=== PATIENT | female | born 1990 | race American Indian/Alaskan Native ===

== ENCOUNTER 2016-10-19 12:23 | Emergency (ER) | payer MEDICAID ==
[2016-10-19 13:36] LABS: Basophils % (Auto) 0.5 % (0.0-1.8); Eosinophils % (Auto) 1.7 % (0.0-4.3); Hematocrit 36.9 % (30.3-42.9); Hemoglobin 11.5 gm/dl (10.1-14.3); Mean Corpuscular HGB Conc 31 % (30-34); Mean Corpuscular Volume 76 fl (79-97); Platelet Count 322 K/mm3 (140-440); Red Blood Count 4.85 M/mm3 (3.65-5.03); Red Cell Distribution Width 18.9 % (13.2-15.2)
[2016-10-19 13:49] LABS: Mean Corpuscular Hemoglobin 24 pg (28-32)
[2016-10-19 13:55] LABS: Alanine Aminotransferase 9 units/L (7-56); Albumin/Globulin Ratio 1.3 %; Alkaline Phosphatase 63 units/L (35-129); Anion Gap 14 mmol/L; BUN/Creatinine Ratio 11.66; Bilirubin,Total 0.3 mg/dL (0.1-1.2); Blood Urea Nitrogen 7 mg/dL (7-17); Carbon Dioxide 28 mmol/L (22-30); Chloride 102.2 mmol/L (98-107); Glucose 70 mg/dL (65-100); Lipase 22 units/L (13-60); Sodium 140 mmol/L (137-145); Total Protein 7.1 g/dL (6.3-8.2)
[2016-10-19 14:28] LABS: Bilirubin,Urine NEG (Negative); Blood,Urine NEG (Negative); Ketones,Urine NEG (Negative); Leukocyte Esterase,Urine SM (Negative); Mucus,Urine 2+ /HPF; Nitrite,Urine NEG (Negative); Protein,Urine <15 mg/dL mg/dL (Negative); Urobilinogen,Urine < 2.0 mg/dL (<2.0)
[2016-10-19] MEDS ORDERED: ZOFRAN ODT ONE (20:06)
[2016-10-19] MEDS ORDERED: ZOFRAN ODT PO ONE (20:10)
[2016-10-19] MEDS ORDERED: BENTYL IM ONE (21:52)
[2016-10-19] MEDS ORDERED: ZOFRAN IV ONE (21:52)
[2016-10-19] MEDS ORDERED: PEPCID PO ONE (21:53)
[2016-10-19] MEDS ORDERED: LIDOCAINE VISCOUS 2% PO ONE (21:53)
[2016-10-19] MEDS ORDERED: ALUM-MAG HYDROX-SIMETH 200-200-20MG/5ML PO ONE (21:53)
--- NOTE | 2016-10-19 21:57 | Emergency Department Report ---
ED Abdominal Pain HPI - General Chief Complaint: Abdominal Pain Stated Complaint: ABD PAIN Time Seen by Provider: 10/19/16 21:47 Source: patient Mode of arrival: Ambulatory Limitations: No Limitations - History of Present Illness Initial Comments: 23-year-old female with no past medical history presented today because of epigastric abdominal pain. Patient states started this morning and was associated with a couple bouts of nonbloody nonbilious emesis. She has not had any diarrhea, reports that she is able to stool but not enough comes out. He has no fevers or chills. No history of trauma surgeries. No vaginal bleeding or discharge. Severity scale (0 -10): 8 - Related Data Previous Rx's Medication Instructions Recorded Last Taken Type Dicyclomine [Bentyl] 20 mg PO BID PRN #14 tablet 10/20/16 Unknown Rx Famotidine [Pepcid] 20 mg PO BID #14 tablet 10/20/16 Unknown Rx Polyethylene Glycol 3350 [Miralax 17 gm PO QDAY #7 packet 10/20/16 Unknown Rx 3350] Allergies Allergy/AdvReac Type Severity Reaction Status Date / Time No Known Allergies Allergy Verified 10/19/16 13:12 ED Review of Systems ROS: Stated complaint: ABD PAIN Other details as noted in HPI Comment: All other systems reviewed and negative Constitutional: denies: chills, fever Respiratory: denies: cough Cardiovascular: denies: chest pain Gastrointestinal: abdominal pain. denies: nausea, vomiting Genitourinary: denies: urgency, dysuria Skin: denies: rash Neurological: denies: headache Psychiatric: denies: anxiety ED Past Medical Hx - Past Medical History Previous Medical History?: No - Surgical History Additional Surgical History: elective AB - Social History Smoking Status: Current Every Day Smoker Substance Use Type: Alcohol, Marijuana - Medications Home Medications: Home Medications Medication Instructions Recorded Confirmed Last Taken Type Dicyclomine [Bentyl] 20 mg PO BID PRN #14 tablet 10/20/16 Unknown Rx Famotidine [Pepcid] 20 mg PO BID #14 tablet 10/20/16 Unknown Rx Polyethylene Glycol 3350 [Miralax 17 gm PO QDAY #7 packet 10/20/16 Unknown Rx 3350] ED Physical Exam - General Limitations: No Limitations General appearance: alert, in no apparent distress - Head Head exam: Present: atraumatic - Eye Eye exam: Present: normal appearance - Neck Neck exam: Present: normal inspection - Respiratory Respiratory exam: Absent: respiratory distress - Cardiovascular Cardiovascular Exam: Present: regular rate, normal rhythm - GI/Abdominal GI/Abdominal exam: Present: soft, other (mild epigastric tenderness, no guarding /rebound, murphys negative). Absent: distended, guarding, rebound - Neurological Exam Neurological exam: Present: alert, oriented X3 - Psychiatric Psychiatric exam: Present: normal affect - Skin Skin exam: Present: intact ED Course Vital Signs 10/19/16 10/19/16 10/19/16 13:13 20:10 21:28 Temperature 98.1 F 99.1 F Pulse Rate 78 73 78 Respiratory 17 18 16 Rate Blood Pressure 122/77 128/73 Blood Pressure 120/74 [Left] O2 Sat by Pulse 100 100 99 Oximetry 10/19/16 22:44 Temperature Pulse Rate 74 Respiratory 16 Rate Blood Pressure Blood Pressure 126/72 [Left] O2 Sat by Pulse 99 Oximetry - Reevaluation(s) Reevaluation #1: 10/20/16 00:16 Symptoms significantly improved ED Medical Decision Making - Lab Data Result diagrams: 10/19/16 13:19 10/19/16 13:19 - Medical Decision Making labs unremarkable other than mild leukocytosis gi cocktail and bentyl ua negative Critical care attestation.: If time is entered above; I have spent that time in minutes in the direct care of this critically ill patient, excluding procedure time. ED Disposition Clinical Impression: Abdominal pain Qualifiers: Abdominal location: upper abdomen, unspecified Qualified Code(s): R10.10 - Upper abdominal pain, unspecified Disposition: DISCHARGED TO HOME OR SELFCARE Is pt being admited?: No Condition: Stable Instructions: Abdominal Pain (ED), Gastritis (ED), Constipation (ED) Additional Instructions: Please follow up with your primary care physician in the next 3-5 days. Return to the Er if your symptoms worsen or you develop new symptoms. Prescriptions: Dicyclomine [Bentyl] 20 mg PO BID PRN #14 tablet PRN Reason: Pain Famotidine [Pepcid] 20 mg PO BID #14 tablet Polyethylene Glycol 3350 [Miralax 3350] 17 gm PO QDAY #7 packet Referrals: PRIMARY CARE, [Primary Care Provider] - 3-5 Days Time of Disposition: 00:16
[2016-10-20 00:09] VITALS: BP 122/76
== END 2016-10-20 00:24 | disposition home or self-care (01) ==
LOC: ED 12:23
DX: R10.13 Epigastric pain (principal); F17.200 Nicotine dependence, unspecified, uncomplicated; F12.10 Cannabis abuse, uncomplicated; Z98.890 Other specified postprocedural states
CPT/HCPCS: 36415; 80053; 81001; 83690; 84703; 85025; 96372; 99283; J0500; Q0162

== ENCOUNTER 2017-03-04 23:47 | Emergency (ER) | payer MEDICAID ==
[2017-03-05] MEDS ORDERED: THERMAZENE 50 GRAM TP ONE ×3 (03:23→03:27)
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
[2017-03-05 05:58] VITALS: BP 106/57
== END 2017-03-05 06:14 | disposition home or self-care (01) ==
LOC: ED 23:47
DX: T21.24XA Burn of second degree of lower back, initial encounter (principal); X12.XXXA Contact with other hot fluids, initial encounter; Y93.9 Activity, unspecified; Y92.9 Unspecified place or not applicable; Y99.9 Unspecified external cause status

== ENCOUNTER 2017-04-11 15:23 | Emergency (ER) | payer MEDICAID ==
[2017-04-11] MEDS ORDERED: MOTRIN PO ONE (15:40)
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
[2017-04-11] MEDS ORDERED: XYLOCAINE 1% MPF 5 mL INFILTRATI ONE (15:47)
[2017-04-11] MEDS ORDERED: ROCEPHIN IM ONE (15:47)
[2017-04-11] MEDS ORDERED: ZITHROMAX PO ONE (15:47)
[2017-04-11 16:32] VITALS: BP 137/77
== END 2017-04-11 16:32 | disposition home or self-care (01) ==
LOC: ED 15:23
DX: J02.9 Acute pharyngitis, unspecified (principal); R50.9 Fever, unspecified
CPT/HCPCS: 96372; 99282; J0696

== ENCOUNTER 2018-04-03 14:52 | Emergency (ER) | payer MEDICAID ==
[2018-04-03 15:04] VITALS: BP 114/67
[2018-04-03 15:50] LABS: Basophils % (Auto) 0.3 % (0.0-1.8); Eosinophils # (Auto) 0.2 K/mm3 (0.0-0.4); Eosinophils % (Auto) 2.6 % (0.0-4.3); Hematocrit 39.4 % (30.3-42.9); Hemoglobin 12.7 gm/dl (10.1-14.3); Lymphocytes # (Auto) 0.8 K/mm3 (1.2-5.4); Lymphocytes % (Auto) 9.3 % (13.4-35.0); Mean Corpuscular HGB Conc 32 % (30-34); Mean Corpuscular Volume 79 fl (79-97); Monocytes # (Auto) 0.7 K/mm3 (0.0-0.8); Monocytes % (Auto) 8.1 % (0.0-7.3); Platelet Count 274 K/mm3 (140-440); Red Cell Distribution Width 17.7 % (13.2-15.2)
[2018-04-03 15:56] LABS: Mean Corpuscular Hemoglobin 25 pg (28-32)
[2018-04-03 16:04] LABS: BUN/Creatinine Ratio 10; Blood Urea Nitrogen 6 mg/dL (7-17); Hemolysis Index 3
[2018-04-03] MEDS ORDERED: FIORICET PO ONE (17:46)
--- NOTE | 2018-04-03 17:53 | Emergency Department Report ---
ED General Adult HPI - General Chief complaint: Medical Clearance Stated complaint: HEADACHE/SOB Time Seen by Provider: 04/03/18 17:10 Source: patient Mode of arrival: Ambulatory Limitations: No Limitations - History of Present Illness Initial comments: She presents to the [facility] department with chief complaint of a diffuse headache that started this morning. Patient states her last headache was 2 months ago but at that time the headache was worse. Patient states that she is under a lot of stress with chest daily life and thinks this may have something to do with her headaches and also has on Coumadin with her being so forgetful lately. Patient became tearful when discussing her stress. She also complains of not having a cycle 2 months which she was worked up for by Dr. Gresham who is her package designer and states all her hormone levels were okay -: Gradual Location: head Radiation: non-radiation Severity scale (0 -10): 1 Quality: other (Throbbing) Improves with: none Worsens with: none Associated Symptoms: denies other symptoms Treatments Prior to Arrival: none - Related Data Previous Rx's Medication Instructions Recorded Last Taken Type Amoxicillin 500 mg PO BID #20 capsule 04/11/17 Unknown Rx Fluconazole [Diflucan TAB] 150 mg PO ONCE #1 tablet 04/11/17 Unknown Rx Butalb/Acetamin/Caff 50-325-40 1 tab PO Q6HR PRN #20 tab 04/03/18 Unknown Rx [Fioricet] Allergies Allergy/AdvReac Type Severity Reaction Status Date / Time No Known Allergies Allergy Verified 10/19/16 13:12 ED Review of Systems ROS: Stated complaint: HEADACHE/SOB Other details as noted in HPI Comment: All other systems reviewed and negative Constitutional: denies: chills, fever Eyes: denies: eye pain, eye discharge, vision change ENT: denies: ear pain, throat pain Respiratory: denies: cough, shortness of breath, wheezing Cardiovascular: denies: chest pain, palpitations Endocrine: no symptoms reported Gastrointestinal: denies: abdominal pain, nausea, diarrhea Genitourinary: denies: urgency, dysuria, discharge Musculoskeletal: denies: back pain, joint swelling, arthralgia Skin: denies: rash, lesions Neurological: headache. denies: weakness, paresthesias Psychiatric: denies: anxiety, depression Hematological/Lymphatic: denies: easy bleeding, easy bruising ED Past Medical Hx - Past Medical History Previous Medical History?: No - Surgical History Past Surgical History?: No Additional Surgical History: elective AB - Social History Smoking Status: Current Every Day Smoker Substance Use Type: None - Medications Home Medications: Home Medications Medication Instructions Recorded Confirmed Last Taken Type Amoxicillin 500 mg PO BID #20 capsule 04/11/17 Unknown Rx Fluconazole [Diflucan TAB] 150 mg PO ONCE #1 tablet 04/11/17 Unknown Rx Butalb/Acetamin/Caff 50-325-40 1 tab PO Q6HR PRN #20 tab 04/03/18 Unknown Rx [Fioricet] ED Physical Exam - General Limitations: No Limitations General appearance: alert, in no apparent distress - Head Head exam: Present: atraumatic, normocephalic - Eye Eye exam: Present: normal appearance - ENT ENT exam: Present: mucous membranes moist - Neck Neck exam: Present: normal inspection - Respiratory Respiratory exam: Present: normal lung sounds bilaterally. Absent: respiratory distress, wheezes, rales, rhonchi - Cardiovascular Cardiovascular Exam: Present: regular rate, normal rhythm. Absent: systolic murmur, diastolic murmur, rubs, gallop - GI/Abdominal GI/Abdominal exam: Present: soft, normal bowel sounds. Absent: distended, tenderness - Extremities Exam Extremities exam: Present: normal inspection - Back Exam Back exam: Present: normal inspection - Neurological Exam Neurological exam: Present: alert, oriented X3, CN II-XII intact. Absent: motor sensory deficit - Psychiatric Psychiatric exam: Present: normal affect, normal mood - Skin Skin exam: Present: warm, dry, intact, normal color. Absent: rash ED Course Vital Signs 04/03/18 04/03/18 14:57 18:00 Temperature 99.9 F H Pulse Rate 103 H Respiratory 16 18 Rate Blood Pressure 114/67 O2 Sat by Pulse 100 Oximetry ED Medical Decision Making - Lab Data Result diagrams: 04/03/18 15:31 04/03/18 15:31 - Medical Decision Making Discussed results with the patient Patient's headache is completely resolved with Fioricet Critical care attestation.: If time is entered above; I have spent that time in minutes in the direct care of this critically ill patient, excluding procedure time. ED Disposition Clinical Impression: Headache Disposition: DC-01 TO HOME OR SELFCARE Is pt being admited?: No Does the pt Need Aspirin: No Instructions: Acute Headache (ED) Additional Instructions: return when worse Prescriptions: Butalb/Acetamin/Caff 50-325-40 [Fioricet] 1 tab PO Q6HR PRN #20 tab PRN Reason: Headache Referrals: PRIMARY CARE, [Primary Care Provider] - 3-5 Days Time of Disposition: 18:57
[2018-04-03 18:17] LABS: Bacteria,Urine 1+ /HPF (Negative); Bilirubin,Urine NEG (Negative); Blood,Urine NEG (Negative); Color,Urine Yellow (Yellow); Mucus,Urine FEW /HPF; Protein,Urine <15 mg/dL mg/dL (Negative); Urobilinogen,Urine < 2.0 mg/dL (<2.0)
[2018-04-03 18:34] LABS: HCG Qualitative,Urine Negative (Negative)
== END 2018-04-03 19:02 | disposition home or self-care (01) ==
LOC: ED 14:52
DX: R51 Headache (principal); F17.200 Nicotine dependence, unspecified, uncomplicated
CPT/HCPCS: 36415; 80048; 81001; 81025; 85025; 99283

== ENCOUNTER 2018-09-01 15:39 | Emergency (ER) | payer OTHER, MEDICAID ==
[2018-09-01] MEDS ORDERED: PERCOCET 5/325 PO STA (21:01)
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
[2018-09-02 00:40] VITALS: BP 111/64
== END 2018-09-02 00:39 | disposition home or self-care (01) ==
LOC: ED 15:39
DX: M54.5 Low back pain (principal); F17.200 Nicotine dependence, unspecified, uncomplicated; V89.2XXA Person injured in unspecified motor-vehicle accident, traffic, initial encounter; Y93.89 Activity, other specified; Y92.488 Other paved roadways as the place of occurrence of the external cause; Y99.8 Other external cause status
CPT/HCPCS: 72131; 99283

== ENCOUNTER 2019-01-15 17:23 | Emergency (ER) | payer MEDICAID, OTHER ==
--- NOTE | 2019-01-15 17:32 | Event Note ---
ED Screening Note ED Screening Note: "unfort I am " nausea vomiting Dr Gresham This initial assessment/diagnostic orders/clinical plan/treatment(s) is/are subject to change based on patients health status, clinical progression and re- assessment by fellow clinical providers in the ED. Further treatment and workup at subsequent clinical providers discretion. Patient/guardian urged not to elope from the ED as their condition may be serious if not clinically assessed and managed. Initial orders include: ua labs ns/zofran
[2019-01-15] MEDS ORDERED: ZOFRAN IV ONE (17:33)
[2019-01-15] MEDS ORDERED: NACL 0.9% 1000 ML 1,000 ML IV ONE (17:33)
[2019-01-15 17:46] LABS: Hematocrit 39.5 % (30.3-42.9); Hemoglobin 12.9 gm/dl (10.1-14.3); Mean Corpuscular HGB Conc 33 % (30-34); Mean Corpuscular Volume 80 fl (79-97); Platelet Count 329 K/mm3 (140-440); Red Blood Count 4.95 M/mm3 (3.65-5.03); Red Cell Distribution Width 17.6 % (13.2-15.2)
[2019-01-15 18:02] LABS: BUN/Creatinine Ratio 7; Blood Urea Nitrogen 5 mg/dL (7-17); Calcium 9.5 mg/dL (8.4-10.2); Hemolysis Index 14
[2019-01-15 18:16] LABS: Bilirubin,Urine NEG (Negative); Blood,Urine NEG (Negative); Color,Urine Yellow (Yellow); Mucus,Urine 3+ /HPF; Protein,Urine <15 mg/dL mg/dL (Negative); Urobilinogen,Urine < 2.0 mg/dL (<2.0); WBC,Urine < 1.0 /HPF (0.0-6.0)
[2019-01-15] MEDS ORDERED: ZOFRAN ONE (20:08)
[2019-01-15] MEDS ORDERED: ZOFRAN ODT PO ONE (20:10)
--- NOTE | 2019-01-15 20:17 | Emergency Department Report ---
ED N/V/D HPI - General Chief complaint: Nausea/Vomiting/Diarrhea Stated complaint: 7WKS /VOMITTING Time Seen by Provider: 01/15/19 17:31 Source: patient Mode of arrival: Ambulatory Limitations: No Limitations - History of Present Illness Initial comments: 28-year-old -Spanish female presents to the emergency room for vomiting. Patient reports that she is 7 weeks . Patient reports that she is 5 para 1 with 2 miscarriages. Patient reports her last menstrual period was 11/23/2018. She reports she is followed by JOURNALIST Dr. Gresham next appointment in 1 week. Patient missed chills and nausea. Patient voices try over-the- counter antinausea medication which she reports has not helped. Patient reports that she was given a prescription for Zofran but has not taken it since she has no insurance. MD complaint: nausea, vomiting Associated Abdominal Pain: No - Related Data Previous Rx's Medication Instructions Recorded Last Taken Type Amoxicillin 500 mg PO BID #20 capsule 04/11/17 Unknown Rx Fluconazole [Diflucan TAB] 150 mg PO ONCE #1 tablet 04/11/17 Unknown Rx Butalb/Acetamin/Caff 50-325-40 1 tab PO Q6HR PRN #20 tab 04/03/18 Unknown Rx [Fioricet] Ketorolac [Toradol] 10 mg PO Q6H PRN #15 tablet 09/01/18 Unknown Rx methOCARBAMOL [Robaxin] 750 mg PO Q8H PRN #21 tablet 09/01/18 Unknown Rx Diphenhydramine HCl [Sleep Tabs 25 mg PO BID PRN #20 tablet 01/15/19 Unknown Rx 25MG] Pyridoxine HCl (Vitamin B6) 25 mg PO BID PRN #20 tablet 01/15/19 Unknown Rx [Vitamin B-6 25MG TAB] Allergies Allergy/AdvReac Type Severity Reaction Status Date / Time No Known Allergies Allergy Verified 01/15/19 17:23 ED Review of Systems ROS: Stated complaint: 7WKS /VOMITTING Other details as noted in HPI Comment: All other systems reviewed and negative ED Past Medical Hx - Past Medical History Previous Medical History?: No - Surgical History Additional Surgical History: elective AB - Social History Smoking Status: Former Smoker Substance Use Type: None - Medications Home Medications: Home Medications Medication Instructions Recorded Confirmed Last Taken Type Amoxicillin 500 mg PO BID #20 capsule 04/11/17 Unknown Rx Fluconazole [Diflucan TAB] 150 mg PO ONCE #1 tablet 04/11/17 Unknown Rx Butalb/Acetamin/Caff 50-325-40 1 tab PO Q6HR PRN #20 tab 04/03/18 Unknown Rx [Fioricet] Ketorolac [Toradol] 10 mg PO Q6H PRN #15 tablet 09/01/18 Unknown Rx methOCARBAMOL [Robaxin] 750 mg PO Q8H PRN #21 tablet 09/01/18 Unknown Rx Diphenhydramine HCl [Sleep Tabs 25 mg PO BID PRN #20 tablet 01/15/19 Unknown Rx 25MG] Pyridoxine HCl (Vitamin B6) 25 mg PO BID PRN #20 tablet 01/15/19 Unknown Rx [Vitamin B-6 25MG TAB] ED Physical Exam - General Limitations: No Limitations General appearance: alert, in no apparent distress - Head Head exam: Present: atraumatic, normocephalic - Eye Eye exam: Present: normal appearance - ENT ENT exam: Present: mucous membranes moist - Neck Neck exam: Present: normal inspection - Respiratory Respiratory exam: Present: normal lung sounds bilaterally. Absent: respiratory distress - Cardiovascular Cardiovascular Exam: Present: regular rate, normal rhythm. Absent: systolic murmur, diastolic murmur, rubs, gallop - GI/Abdominal GI/Abdominal exam: Present: soft, normal bowel sounds - Extremities Exam Extremities exam: Present: normal inspection - Back Exam Back exam: Present: normal inspection - Neurological Exam Neurological exam: Present: alert, oriented X3 - Psychiatric Psychiatric exam: Present: normal affect, normal mood - Skin Skin exam: Present: warm, dry, intact, normal color. Absent: rash ED Course Vital Signs 01/15/19 17:32 Temperature 98.4 F Pulse Rate 86 Respiratory 16 Rate Blood Pressure 118/69 O2 Sat by Pulse 100 Oximetry ED Medical Decision Making - Lab Data Result diagrams: 01/15/19 17:35 01/15/19 17:35 - Medical Decision Making 28-year-old female comes in for nausea and vomiting while . Patient reports that she cannot afford the Zofran. Patient was given IV fluids and IV Zofran able to tolerate fluids. Patient be discharged home in patient was given a good Rx car that will make her Zofran 17dollers from [facility]. Patient also be giv en B6 and sleep aid for nausea and vomiting she's keep her appointment for next week with her RADIOLOGY MANAGER provider. Critical care attestation.: If time is entered above; I have spent that time in minutes in the direct care of this critically ill patient, excluding procedure time. ED Disposition Clinical Impression: Nausea & vomiting Disposition: DC-01 TO HOME OR SELFCARE Is pt being admited?: No Does the pt Need Aspirin: No Condition: Stable Instructions: Hyperemesis Gravidarum (ED) Additional Instructions: Take medications as prescribed. Follow-up with your RADIOLOGY MANAGER provider. Prescriptions: Diphenhydramine HCl [Sleep Tabs 25MG] 25 mg PO BID PRN #20 tablet PRN Reason: Nausea And Vomiting Pyridoxine HCl (Vitamin B6) [Vitamin B-6 25MG TAB] 25 mg PO BID PRN #20 tablet PRN Reason: Nausea And Vomiting Referrals: STEFFEN GILLESPIE MD [Primary Care Provider] - 3-5 Days Forms: Work/School Release Form(ED)
[2019-01-15 21:47] VITALS: BP 106/57
== END 2019-01-15 22:18 | disposition home or self-care (01) ==
LOC: ED 17:23
DX: O21.9 Vomiting of pregnancy, unspecified (principal); Z3A.01 Less than 8 weeks gestation of pregnancy
CPT/HCPCS: 36415; 80048; 81001; 84702; 85027; 86900; 86901; 96361; 96374; 99283; J2405; J7030

== ENCOUNTER 2019-02-21 12:20 | Emergency (ER) | payer MEDICAID ==
[2019-02-21 13:20] VITALS: BP 104/66
--- NOTE | 2019-02-21 13:20 | Event Note ---
ED Screening Note ED Screening Note: frontal MCCALLUM that began this morning +photophobia has not taken anything +nausea, two episodes of emesis no vision changes, no numbness or unilateral weakness This initial assessment/diagnostic orders/clinical plan/treatment(s) is/are subject to change based on patients health status, clinical progression and re- assessment by fellow clinical providers in the ED. Further treatment and workup at subsequent clinical providers discretion. Patient/guardian urged not to elope from the ED as their condition may be serious if not clinically assessed and managed.
[2019-02-21] MEDS ORDERED: TORADOL IV ONE (14:20)
[2019-02-21] MEDS ORDERED: BENADRYL IV ONE (14:20)
[2019-02-21] MEDS ORDERED: ZOFRAN IV ONE (14:20)
--- NOTE | 2019-02-21 14:27 | Emergency Department Report ---
ED Headache HPI - General Chief Complaint: Headache Stated Complaint: LIGHTHEADED/DIZZINESS Time Seen by Provider: 02/21/19 13:18 Source: patient Exam Limitations: no limitations - History of Present Illness Initial Comments: Pt. is a 28 y.o female who presents to ED c/o constant, throbbing, non radiation 8/10 intensity type headache x 5 days. Pt. states pain located to temporal headache bilaterally Pt. admits pain not relieved with Motrin which she took earlier. Patient states she had an episode of vomiting some nausea yesterday. Pt. denies fever, chills, trauma, vision impairment, Timing/Duration: 4-6 hours Quality: achy, throbbing Head Injury Location: temporal Recent Head Trauma: no recent headache/trauma Modifying Factors: worse with: exposure to light Associated Symptoms: nausea/vomiting Allergies/Adverse Reactions: Allergies No Known Allergies Allergy (Verified 02/21/19 12:28) Home Medications: Ambulatory Orders Amoxicillin 500 mg PO BID #20 capsule 04/11/17 Fluconazole [Diflucan TAB] 150 mg PO ONCE #1 tablet 04/11/17 Ketorolac [Toradol] 10 mg PO Q6H PRN #15 tablet 09/01/18 Diphenhydramine HCl [Sleep Tabs 25MG] 25 mg PO BID PRN #20 tablet 01/15/19 Pyridoxine HCl (Vitamin B6) [Vitamin B-6 25MG TAB] 25 mg PO BID PRN #20 tablet 01/15/19 Butalb/Acetamin/Caff 50-325-40 [Fioricet 50-325-40] 1 tab PO Q6HR PRN #20 tab 02/21/19 methOCARBAMOL [Robaxin TAB] 750 mg PO Q8H PRN #21 tablet 02/21/19 ED Review of Systems ROS: Stated complaint: LIGHTHEADED/DIZZINESS Other details as noted in HPI Comment: All other systems reviewed and negative ED Past Medical Hx - Past Medical History Previous Medical History?: No - Surgical History Past Surgical History?: Yes Additional Surgical History: elective AB - Social History Smoking Status: Current Some Day Smoker Substance Use Type: Alcohol - Medications Home Medications: Home Medications Medication Instructions Recorded Confirmed Last Taken Type Amoxicillin 500 mg PO BID #20 capsule 04/11/17 Unknown Rx Fluconazole [Diflucan TAB] 150 mg PO ONCE #1 tablet 10/10/17 Unknown Rx Ketorolac [Toradol] 10 mg PO Q6H PRN #15 tablet 09/01/18 Unknown Rx Diphenhydramine HCl [Sleep Tabs 25 mg PO BID PRN #20 tablet 01/15/19 Unknown Rx 25MG] Pyridoxine HCl (Vitamin B6) 25 mg PO BID PRN #20 tablet 01/15/19 Unknown Rx [Vitamin B-6 25MG TAB] Butalb/Acetamin/Caff 50-325-40 1 tab PO Q6HR PRN #20 tab 02/21/19 Unknown Rx [Fioricet 50-325-40] methOCARBAMOL [Robaxin TAB] 750 mg PO Q8H PRN #21 tablet 02/21/19 Unknown Rx ED Physical Exam - General Limitations: No Limitations General appearance: alert, in no apparent distress - Head Head exam: Present: atraumatic, normocephalic - Eye Eye exam: Present: normal appearance - ENT ENT exam: Present: mucous membranes moist - Neck Neck exam: Present: normal inspection - Respiratory Respiratory exam: Present: normal lung sounds bilaterally. Absent: respiratory distress - Cardiovascular Cardiovascular Exam: Present: regular rate, normal rhythm. Absent: systolic murmur, diastolic murmur, rubs, gallop - GI/Abdominal GI/Abdominal exam: Present: soft, normal bowel sounds - Extremities Exam Extremities exam: Present: normal inspection - Back Exam Back exam: Present: normal inspection - Neurological Exam Neurological exam: Present: alert, oriented X3, normal gait, other (no neurological deficit) - Psychiatric Psychiatric exam: Present: normal affect, normal mood - Skin Skin exam: Present: warm, dry, intact, normal color. Absent: rash ED Course Vital Signs 02/21/19 02/21/19 02/21/19 13:18 13:36 14:55 Temperature 99.3 F 99.3 F Pulse Rate 88 88 Respiratory 18 18 18 Rate Blood Pressure 104/66 Blood Pressure 104/66 [Right] O2 Sat by Pulse 100 100 Oximetry - Reevaluation(s) Reevaluation #1: Patient reports feeling much better she is smiling and walking around in the ED stating she feels much better. Patient is walking to the bathroom to sit comfortably in bed. She states that her pain and nausea has been resolved. She has no neurological deficit she is stable. 02/23/19 09:13 ED Medical Decision Making - Medical Decision Making 28-year-old female presents with migraine headache Patient received medication in the ED Patient reports better after medication. Discussed triggers and avoiding triggers. Vital signs are normal. She denies any neurological deficit. Discussed follow-up. Acute physician. Critical care attestation.: If time is entered above; I have spent that time in minutes in the direct care of this critically ill patient, excluding procedure time. ED Disposition Clinical Impression: Migraine headache with aura Disposition: TO HOME OR SELFCARE Is pt being admited?: No Does the pt Need Aspirin: No Condition: Stable Instructions: Migraine Headache (ED), Acute Headache (ED) Additional Instructions: Make sure to follow up with the primary care physician as discussed. Take all your medications as you've been prescribed. If you have any worsening symptoms or develop new symptoms please return to ED immediately. Prescriptions: Butalb/Acetamin/Caff 50-325-40 [Fioricet 50-325-40] 1 tab PO Q6HR PRN #20 tab PRN Reason: Headache methOCARBAMOL [Robaxin TAB] 750 mg PO Q8H PRN #21 tablet PRN Reason: Spasms Referrals: [facility] [Outside] - 3-5 Days [facility] [Outside] - 3-5 Days Forms: Accompanied Note, Work/School Release Form(ED) Time of Disposition: 15:44
== END 2019-02-21 16:06 | disposition home or self-care (01) ==
LOC: ED 12:20
DX: G43.909 Migraine, unspecified, not intractable, without status migrainosus (principal); F17.200 Nicotine dependence, unspecified, uncomplicated; Z98.890 Other specified postprocedural states; Z79.899 Other long term (current) drug therapy
CPT/HCPCS: 96374; 96375; 99283; J1200; J1885; J2405

== ENCOUNTER 2019-04-24 19:03 | Emergency (ER) | payer MEDICAID ==
[2019-04-24 19:30] VITALS: BP 105/69
[2019-04-24] MEDS ORDERED: BUTALB/ACETAMINOPHEN/CAFFEINE TAB PO ONE (20:21)
[2019-04-24] MEDS ORDERED: KETOROLAC 30 MG/1 ML INJ IM ONE (20:21)
[2019-04-24] MEDS ORDERED: ONDANSETRON 4 MG ODT TAB PO ONE (20:21)
--- NOTE | 2019-04-24 20:49 | Emergency Department Report ---
HPI - General Chief Complaint: Headache Time Seen by Provider: 04/24/19 19:59 - HPI HPI: 28-year-old female presents to the emergency department with complaint of a frontal and bitemporal headache that has been going on since about 1:00 this afternoon. She denies any vision change, vomiting, fever or any neurological deficits but does have some nausea. She denies any past mental history including any history of migraine headaches. She has not taken anything for her symptoms prior to presentation. ED Past Medical Hx - Past Medical History Previous Medical History?: Yes Hx Headaches / Migraines: Yes - Surgical History Past Surgical History?: Yes Additional Surgical History: elective AB - Social History Smoking Status: Current Every Day Smoker Substance Use Type: Alcohol - Medications Home Medications: Home Medications Medication Instructions Recorded Confirmed Last Taken Type Amoxicillin 500 mg PO BID #20 capsule 04/11/17 Unknown Rx Fluconazole [Diflucan TAB] 150 mg PO ONCE #1 tablet 04/11/17 Unknown Rx Ketorolac [Toradol] 10 mg PO Q6H PRN #15 tablet 09/01/18 Unknown Rx Diphenhydramine HCl [Sleep Tabs 25 mg PO BID PRN #20 tablet 01/15/19 Unknown Rx 25MG] Pyridoxine HCl (Vitamin B6) 25 mg PO BID PRN #20 tablet 01/15/19 Unknown Rx [Vitamin B-6 25MG TAB] Butalb/Acetamin/Caff 50-325-40 1 tab PO Q6HR PRN #20 tab 02/21/19 Unknown Rx [Fioricet 50-325-40] methOCARBAMOL [Robaxin TAB] 750 mg PO Q8H PRN #21 tablet 02/21/19 Unknown Rx Butalb/Acetamin/Caff 50-325-40 1 tab PO Q6HR PRN #20 tab 04/24/19 Unknown Rx [Fioricet 50-325-40] ED Review of Systems ROS: Stated complaint: BAD MIGRAINE Other details as noted in HPI Comment: All other systems reviewed and negative Constitutional: denies: chills, fever Eyes: denies: eye pain, vision change Neurological: headache. denies: weakness, numbness, paresthesias, confusion, vertigo Physical Exam - Physical Exam Vital Signs: Vital Signs 04/24/19 19:28 Temperature 98.5 F Pulse Rate 82 Respiratory 18 Rate Blood Pressure 105/69 O2 Sat by Pulse 100 Oximetry Physical Exam: GENERAL: The patient is well-developed well-nourished. HENT: Normocephalic. Atraumatic. Patient has moist mucous membranes. EYES: Extraocular motions are intact. Pupils equal reactive to light bilateral ly. No nystagmus. NECK: Supple. Trachea is midline. CHEST/LUNGS: Clear to auscultation. There is no respiratory distress noted. HEART/CARDIOVASCULAR: Regular. There is no tachycardia. There is no murmur. ABDOMEN: There is no abdominal distention. SKIN: Skin is warm and dry. NEURO: The patient is awake, alert, and oriented. The patient is cooperative. The patient has no focal neurologic deficits. Normal speech. Cranial nerves II through XII grossly intact. No facial asymmetry. MUSCULOSKELETAL: There is no tenderness or deformity. There is no limitation range of motion. There is no evidence of acute injury. ED Course Vital Signs 04/24/19 19:28 Temperature 98.5 F Pulse Rate 82 Respiratory 18 Rate Blood Pressure 105/69 O2 Sat by Pulse 100 Oximetry ED Medical Decision Making - Medical Decision Making This patient presents with a frontal and bitemporal headache since about 1:00 PM. She does not have any focal, motor or sensory deficits in her cranial nerves are intact. She was given a shot of Toradol, a Fioricet and some Zofran. Upon reevaluation her headache has completely resolved. Vital signs stable throughout her ED course. For all these reasons she does not appear to require any CT imaging of the head at this time. She was given a referral for primary care and neurology. She will return to the ER with any worsening of her symptoms or any acute distress. - Differential Diagnosis migraine headache, tension headache, cluster headache Critical Care Time: No Critical care attestation.: If time is entered above; I have spent that time in minutes in the direct care of this critically ill patient, excluding procedure time. ED Disposition Clinical Impression: Headache Qualifiers: Headache type: unspecified Headache chronicity pattern: unspecified pattern Intractability: not intractable Qualified Code(s): R51 - Headache Disposition: DC-01 TO HOME OR SELFCARE Is pt being admited?: No Condition: Stable Instructions: Acute Headache (ED) Additional Instructions: Please follow-up with a primary care physician in the next few days. I am also giving you a referral for a local neurologist, Dr. Maya, to follow up regarding your headaches. Return to the emergency Department with any worsening of your symptoms or any acute distress. You have been prescribed a medication that is sedating and therefore should not be taken prior to driving, working, and responsible for children and in no way should be mixed with alcohol of any quantity. Prescriptions: Butalb/Acetamin/Caff 50-325-40 [Fioricet 50-325-40] 1 tab PO Q6HR PRN #20 tab PRN Reason: Headache Referrals: NIRAV JIMÉNEZ MD [Staff Physician] - 2-3 Days PAWAN MAYA MD [Referring] - 2-3 Days Forms: Work/School Release Form(ED) Time of Disposition: 21:54
== END 2019-04-24 22:36 | disposition home or self-care (01) ==
LOC: ED 19:03
DX: R51 Headache (principal); G43.909 Migraine, unspecified, not intractable, without status migrainosus; F17.200 Nicotine dependence, unspecified, uncomplicated; Z79.899 Other long term (current) drug therapy
CPT/HCPCS: 96372; 99282; J1885; Q0162

== ENCOUNTER 2020-04-15 12:31 | Emergency (ER) | payer MEDICAID ==
[2020-04-15 13:05] VITALS: BP 109/62
--- NOTE | 2020-04-15 13:32 | XRay Report ---
CHEST 2 VIEWS INDICATION: SOB. COMPARISON: None FINDINGS: Support devices: None. Heart: Within normal limits. Lungs/pleura: No acute air space or interstitial disease. No pneumothorax. Additional findings: None. IMPRESSION: No acute findings. Signer Name: Mohsen Ramirez Jr, MD Signed: 04/15/2020 1:27 PM Workstation Name: [id number]
[2020-04-15] MEDS ORDERED: KETOROLAC 60 MG/2 ML INJ IM ONE (16:57)
--- NOTE | 2020-04-15 17:02 | Emergency Department Report ---
ED General Adult HPI - General Chief complaint: Chest Pain Stated complaint: CHEST PAIN/SHOULDER LIMB Time Seen by Provider: 04/15/20 16:36 Source: patient Mode of arrival: Ambulatory Limitations: No Limitations - History of Present Illness Initial comments: 29-year-old female smoker with no significant past medical history presents to hospital complaining of right-sided chest pain x2 days. Patient states that pain is sharp in nature and feels worse with sitting upright and with deep inspiration and chest stretching. Pain feels better with laying on the right side and with splinting with respiration. Patient states that right chest wall is tender to palpation but feels somewhat better when applying pressure with deep inspiration. She feels shortness of breath only because of pain due to deep inspiration. She denies wheezing, cough, Sinus, leg edema, recent travel, control pill use, recent surgery, or history of PE/DVT. Patient does smoke a half a pack of cigarettes per day. She is scheduled to start taking control in the next 4 days - Related Data Previous Rx's Medication Instructions Recorded Last Taken Type Amoxicillin 500 mg PO BID #20 capsule 04/11/17 Unknown Rx Fluconazole (Nf) [Diflucan TAB] 150 mg PO ONCE #1 tablet 04/11/17 Unknown Rx Ketorolac [Toradol] 10 mg PO Q6H PRN #15 tablet 09/01/18 Unknown Rx Diphenhydramine HCl [Sleep Tabs 25 mg PO BID PRN #20 tablet 01/15/19 Unknown Rx 25MG] Pyridoxine HCl (Vitamin B6) 25 mg PO BID PRN #20 tablet 01/15/19 Unknown Rx [Vitamin B-6 25MG TAB] Butalb/Acetamin/Caff 50-325-40 1 tab PO Q6HR PRN #20 tab 02/21/19 Unknown Rx [Fioricet 50-325-40] methOCARBAMOL [Robaxin TAB] 750 mg PO Q8H PRN #21 tablet 02/21/19 Unknown Rx Butalb/Acetamin/Caff 50-325-40 1 tab PO Q6HR PRN #20 tab 04/24/19 Unknown Rx [Fioricet 50-325-40] Ibuprofen [Motrin] 800 mg PO Q8HR PRN #20 tablet 04/15/20 Unknown Rx traMADoL [Ultram 50 MG tab] 50 mg PO Q6HR PRN #15 tablet 04/15/20 Unknown Rx Allergies Allergy/AdvReac Type Severity Reaction Status Date / Time No Known Allergies Allergy Verified 02/21/19 12:28 ED Review of Systems ROS: Stated complaint: CHEST PAIN/SHOULDER LIMB Other details as noted in HPI Comment: All other systems reviewed and negative ED Past Medical Hx - Past Medical History Hx Headaches / Migraines: Yes - Surgical History Additional Surgical History: elective AB - Social History Smoking Status: Current Every Day Smoker Substance Use Type: Alcohol - Medications Home Medications: Home Medications Medication Instructions Recorded Confirmed Last Taken Type Amoxicillin 500 mg PO BID #20 capsule 04/11/17 Unknown Rx Fluconazole (Nf) [Diflucan TAB] 150 mg PO ONCE #1 tablet 04/11/17 Unknown Rx Ketorolac [Toradol] 10 mg PO Q6H PRN #15 tablet 09/01/18 Unknown Rx Diphenhydramine HCl [Sleep Tabs 25 mg PO BID PRN #20 tablet 01/15/19 Unknown Rx 25MG] Pyridoxine HCl (Vitamin B6) 25 mg PO BID PRN #20 tablet 01/15/19 Unknown Rx [Vitamin B-6 25MG TAB] Butalb/Acetamin/Caff 50-325-40 1 tab PO Q6HR PRN #20 tab 02/21/19 Unknown Rx [Fioricet 50-325-40] methOCARBAMOL [Robaxin TAB] 750 mg PO Q8H PRN #21 tablet 02/21/19 Unknown Rx Butalb/Acetamin/Caff 50-325-40 1 tab PO Q6HR PRN #20 tab 04/24/19 Unknown Rx [Fioricet 50-325-40] Ibuprofen [Motrin] 800 mg PO Q8HR PRN #20 tablet 04/15/20 Unknown Rx traMADoL [Ultram 50 MG tab] 50 mg PO Q6HR PRN #15 tablet 04/15/20 Unknown Rx ED Physical Exam - General Limitations: No Limitations - Other Other exam information: General: No acute distress Head: Atraumatic Eyes: normal appearance ENT: Moist mucous membranes Neck: Normal appearance, no midline tenderness Chest: Clear to auscultation bilaterally. Reproducible right upper chest wall pain. Pain reproducible with abduction of right arm as well as chest wall stretching. No tachypnea CV: Regular rate and rhythm Abdomen: Soft, normal bowel sounds, nontender, nondistended, no rebound or guarding Back: Normal inspection Extremity: Normal inspection, full range of motion, no calf tenderness, leg edema, or leg asymmetry Neuro: Alert O x 3, no facial asymmetry, speech clear, no gross motor sensory deficit Psych: Appropriate behavior Skin: No rash ED Course Vital Signs 04/15/20 12:34 Temperature 98.1 F Pulse Rate 87 Respiratory 20 Rate Blood Pressure 109/62 [Left] O2 Sat by Pulse 98 Oximetry ED Medical Decision Making - Radiology Data Radiology results: report reviewed (cxr: naf) - Medical Decision Making Patient presents to the hospital reproducible muscle skeletal pain. Pain is reproducible with palpation, deep inspiration, as well as chest wall stretching. Patient is PERC PE score is 0 therefore D-dimer not obtained Patient also counseled on importance of not smoking especially if she intends to start taking control Critical Care Time: No Critical care attestation.: If time is entered above; I have spent that time in minutes in the direct care of this critically ill patient, excluding procedure time. ED Disposition Clinical Impression: Acute chest wall pain Disposition: TO HOME OR SELFCARE Is pt being admited?: No Does the pt Need Aspirin: No Condition: Stable Instructions: Chest Pain (ED), How to Stop Smoking (ED) Additional Instructions: Take the medication as prescribed. Follow-up with your doctor or doctor/clinic provided. Return if symptoms worsen as indicated by your discharge instructions. Prescriptions: Ibuprofen [Motrin] 800 mg PO Q8HR PRN #20 tablet PRN Reason: Pain , Severe (7-10) traMADoL [Ultram 50 MG tab] 50 mg PO Q6HR PRN #15 tablet PRN Reason: Pain Referrals: PRIMARY MD WILLIE [Primary Care Provider] - 3-5 Days [facility] [Provider Group] - 3-5 Days LILY BHATIA MD [Staff Physician] - 3-5 Days Forms: Work/School Release Form(ED) Time of Disposition: 17:08 Medical Decision Making - [facility] DVT Risk Factors: denies: Cast, Recent Orthopedic Procedure, Recent Surgery- Other, Bedridden, Paralysis, Prior DVT/PE, Leg Swelling - PERC (PE Decision Criteria) Heart Rate < 100: (0) No O2 Sat on Room Air > .94%: (0) No No Prior History pf DVT/PE: (0) No No Recent Trauma or Surgery: (0) No Hemoptysis: (0) No No Exogenous Estrogen: (0) No No Clinical Signs Suggesting DVT: (0) No Age < 50: No
== END 2020-04-15 18:26 | disposition home or self-care (01) ==
LOC: ED 12:31
DX: R07.89 Other chest pain (principal); G43.909 Migraine, unspecified, not intractable, without status migrainosus; F17.200 Nicotine dependence, unspecified, uncomplicated; Z98.890 Other specified postprocedural states; Z79.1 Long term (current) use of non-steroidal anti-inflammatories (NSAID); Z79.2 Long term (current) use of antibiotics; Z79.899 Other long term (current) drug therapy
CPT/HCPCS: 71046; 96372; 99283; J1885

== ENCOUNTER 2020-09-15 22:28 | Emergency (ER) | payer SELFPAY ==
--- NOTE | 2020-09-15 23:50 | XRay Report ---
XR toe(s) 2+V RT INDICATION / CLINICAL INFORMATION: metal bar fell on foot with pain. COMPARISON: None available. FINDINGS: No acute fracture. Normal alignment. Joint spaces are preserved. No destructive osseous lesion or s uspicious periosteal reaction. Impression: 1.No acute fracture. Signer Name: Clinton Mcneill MD Signed: 09/15/2020 11:46 PM Workstation Name: [id number]
[2020-09-16 00:13] VITALS: BP 100/74
--- NOTE | 2020-09-16 00:15 | Emergency Department Report ---
ED Lower Extremity HPI - General Chief Complaint: Extremity Injury, Lower Stated Complaint: FOOT INJURY Time Seen by Provider: 09/15/20 23:41 Source: patient Mode of arrival: Ambulatory Limitations: No Limitations - Related Data Previous Rx's Medication Instructions Recorded Last Taken Type Amoxicillin 500 mg PO BID #20 capsule 04/11/17 Unknown Rx Fluconazole (Nf) [Diflucan TAB] 150 mg PO ONCE #1 tablet 04/11/17 Unknown Rx Ketorolac [Toradol] 10 mg PO Q6H PRN #15 tablet 09/01/18 Unknown Rx Diphenhydramine HCl [Sleep Tabs 25 mg PO BID PRN #20 tablet 01/15/19 Unknown Rx 25MG] Pyridoxine HCl (Vitamin B6) 25 mg PO BID PRN #20 tablet 01/15/19 Unknown Rx [Vitamin B-6 25MG TAB] Butalb/Acetamin/Caff 50-325-40 1 tab PO Q6HR PRN #20 tab 02/21/19 Unknown Rx [Fioricet 50-325-40] methOCARBAMOL [Robaxin TAB] 750 mg PO Q8H PRN #21 tablet 02/21/19 Unknown Rx Butalb/Acetamin/Caff 50-325-40 1 tab PO Q6HR PRN #20 tab 04/24/19 Unknown Rx [Fioricet 50-325-40] Ibuprofen [Motrin] 800 mg PO Q8HR PRN #20 tablet 04/15/20 Unknown Rx traMADoL [Ultram 50 MG tab] 50 mg PO Q6HR PRN #15 tablet 04/15/20 Unknown Rx traMADoL [Ultram] 50 mg PO Q6HR PRN #14 tablet 09/16/20 Unknown Rx Allergies Allergy/AdvReac Type Severity Reaction Status Date / Time No Known Allergies Allergy Verified 02/21/19 12:28 ED Review of Systems ROS: Stated complaint: FOOT INJURY Other details as noted in HPI ED Past Medical Hx - Past Medical History Previous Medical History?: Yes Hx Headaches / Migraines: Yes - Surgical History Past Surgical History?: Yes Additional Surgical History: elective AB - Social History Smoking Status: Current Every Day Smoker Substance Use Type: Alcohol - Medications Home Medications: Home Medications Medication Instructions Recorded Confirmed Last Taken Type Amoxicillin 500 mg PO BID #20 capsule 04/11/17 Unknown Rx Fluconazole (Nf) [Diflucan TAB] 150 mg PO ONCE #1 tablet 04/11/17 Unknown Rx Ketorolac [Toradol] 10 mg PO Q6H PRN #15 tablet 09/01/18 Unknown Rx Diphenhydramine HCl [Sleep Tabs 25 mg PO BID PRN #20 tablet 01/15/19 Unknown Rx 25MG] Pyridoxine HCl (Vitamin B6) 25 mg PO BID PRN #20 tablet 01/15/19 Unknown Rx [Vitamin B-6 25MG TAB] Butalb/Acetamin/Caff 50-325-40 1 tab PO Q6HR PRN #20 tab 02/21/19 Unknown Rx [Fioricet 50-325-40] methOCARBAMOL [Robaxin TAB] 750 mg PO Q8H PRN #21 tablet 02/21/19 Unknown Rx Butalb/Acetamin/Caff 50-325-40 1 tab PO Q6HR PRN #20 tab 04/24/19 Unknown Rx [Fioricet 50-325-40] Ibuprofen [Motrin] 800 mg PO Q8HR PRN #20 tablet 04/15/20 Unknown Rx traMADoL [Ultram 50 MG tab] 50 mg PO Q6HR PRN #15 tablet 04/15/20 Unknown Rx traMADoL [Ultram] 50 mg PO Q6HR PRN #14 tablet 09/16/20 Unknown Rx ED Physical Exam - General Limitations: No Limitations Critical care attestation.: If time is entered above; I have spent that time in minutes in the direct care of this critically ill patient, excluding procedure time. ED Disposition Disposition: DC-01 TO HOME OR SELFCARE Condition: Stable Instructions: Contusion, Contusion, [id number], How to Use Cold Therapy Prescriptions: traMADoL [Ultram] 50 mg PO Q6HR PRN #14 tablet PRN Reason: Pain Referrals: [facility] [Provider Group] - 3-5 Days PRIMARY [facility]ARE, [Primary Care Provider] - 3-5 Days
[2020-09-16] MEDS ORDERED: ACETAMINOPHEN 500 MG TAB PO ONE (00:31)
[2020-09-16] MEDS ORDERED: IBUPROFEN 800 MG TAB PO ONE (00:31)
== END 2020-09-16 00:35 | disposition home or self-care (01) ==
LOC: ED 22:28
DX: S99.921A Unspecified injury of right foot, initial encounter (principal); G43.909 Migraine, unspecified, not intractable, without status migrainosus; F17.200 Nicotine dependence, unspecified, uncomplicated; Z79.899 Other long term (current) drug therapy; Z98.890 Other specified postprocedural states; X58.XXXA Exposure to other specified factors, initial encounter; Y93.89 Activity, other specified; Y92.89 Other specified places as the place of occurrence of the external cause; Y99.8 Other external cause status

== ENCOUNTER 2021-01-13 06:22 | Emergency (ER) | payer SELFPAY ==
[2021-01-13 06:30] VITALS: BP 124/74
[2021-01-13] MEDS ORDERED: IBUPROFEN 600 MG TAB PO ONE (06:37)
--- NOTE | 2021-01-13 07:09 | XRay Report ---
Left foot radiograph, 2 views HISTORY: Pain and swelling. COMPARISON: None FINDINGS: No acute fracture or malalignment. Bone mineralization is within normal limits. No osseous erosions. 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 No focal soft tissue abnormality. IMPRESSION: Mild great toe bunion deformity. No acute osseous findings. Signer Name: Aiden Mcpherson MD Signed: 01/13/2021 7:05 AM Workstation Name: [id number]
--- NOTE | 2021-01-13 10:05 | Emergency Department Report ---
ED Lower Extremity HPI - General Chief Complaint: Extremity Injury, Lower Stated Complaint: LT FOOT PAIN Time Seen by Provider: 01/13/21 09:43 Source: patient Mode of arrival: Wheelchair Limitations: No Limitations - History of Present Illness Initial Comments: 30-year-old -[place] female presents to the emergency room reporting swelling and pain to her left ankle that started 20 minutes prior to arrival. Patient does not recall any injury. 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 Patient states that the pain is worse with ambulating and applying pressure to left lateral part of her ankle. Patient states she was given ibuprofen 600 mg when she arrived here. Patient states elevating and resting makes it better. MD Complaint: ankle injury Onset/Timin -: minutes(s) (Prior to arrival) Injury: Ankle: Left (Lateral ankle) Type of Injury: unknown Place: home Severity: severe Severity scale (0 -10): 10 Improves With: rest Worsens With: weight bearing, palpation Associated Symptoms: swelling, unable to bear weight - Related Data Previous Rx's Medication Instructions Recorded Last Taken Type Amoxicillin 500 mg PO BID #20 capsule 04/11/17 Unknown Rx Fluconazole (Nf) [Diflucan TAB] 150 mg PO ONCE #1 tablet 04/11/17 Unknown Rx Ketorolac [Toradol] 10 mg PO Q6H PRN #15 tablet 09/01/18 Unknown Rx Diphenhydramine HCl [Sleep Tabs 25 mg PO BID PRN #20 tablet 01/15/19 Unknown Rx 25MG] Pyridoxine HCl (Vitamin B6) 25 mg PO BID PRN #20 tablet 01/15/19 Unknown Rx [Vitamin B-6 25MG TAB] Butalb/Acetamin/Caff 50-325-40 1 tab PO Q6HR PRN #20 tab 02/21/19 Unknown Rx [Fioricet 50-325-40] methOCARBAMOL [Robaxin TAB] 750 mg PO Q8H PRN #21 tablet 02/21/19 Unknown Rx Butalb/Acetamin/Caff 50-325-40 1 tab PO Q6HR PRN #20 tab 04/24/19 Unknown Rx [Fioricet 50-325-40] Ibuprofen [Motrin] 800 mg PO Q8HR PRN #20 tablet 04/15/20 Unknown Rx traMADoL [Ultram 50 MG tab] 50 mg PO Q6HR PRN #15 tablet 04/15/20 Unknown Rx traMADoL [Ultram] 50 mg PO Q6HR PRN #14 tablet 09/16/20 Unknown Rx Allergies Allergy/AdvReac Type Severity Reaction Status Date / Time No Known Allergies Allergy Verified 02/21/19 12:28 ED Review of Systems ROS: Stated complaint: LT FOOT PAIN Other details as noted in HPI Comment: All other systems reviewed and negative ED Past Medical Hx - Past Medical History Previous Medical History?: Yes Hx Headaches / Migraines: Yes - Surgical History Past Surgical History?: Yes Additional Surgical History: elective AB - Social History Smoking Status: Current Every Day Smoker Substance Use Type: Alcohol - Medications Home Medications: Home Medications Medication Instructions Recorded Confirmed Last Taken Type Amoxicillin 500 mg PO BID #20 capsule 04/11/17 Unknown Rx Fluconazole (Nf) [Diflucan TAB] 150 mg PO ONCE #1 tablet 04/11/17 Unknown Rx Ketorolac [Toradol] 10 mg PO Q6H PRN #15 tablet 09/01/18 Unknown Rx Diphenhydramine HCl [Sleep Tabs 25 mg PO BID PRN #20 tablet 01/15/19 Unknown Rx 25MG] Pyridoxine HCl (Vitamin B6) 25 mg PO BID PRN #20 tablet 01/15/19 Unknown Rx [Vitamin B-6 25MG TAB] Butalb/Acetamin/Caff 50-325-40 1 tab PO Q6HR PRN #20 tab 02/21/19 Unknown Rx [Fioricet 50-325-40] methOCARBAMOL [Robaxin TAB] 750 mg PO Q8H PRN #21 tablet 02/21/19 Unknown Rx Butalb/Acetamin/Caff 50-325-40 1 tab PO Q6HR PRN #20 tab 04/24/19 Unknown Rx [Fioricet 50-325-40] Ibuprofen [Motrin] 800 mg PO Q8HR PRN #20 tablet 04/15/20 Unknown Rx traMADoL [Ultram 50 MG tab] 50 mg PO Q6HR PRN #15 tablet 04/15/20 Unknown Rx traMADoL [Ultram] 50 mg PO Q6HR PRN #14 tablet 09/16/20 Unknown Rx ED Physical Exam - General Limitations: No Limitations General appearance: alert, in no apparent distress, other (Sleeping comfortably) - Head Head exam: Present: atraumatic, normocephalic - Eye Eye exam: Present: normal appearance - ENT ENT exam: Present: normal external ear exam - Neck Neck exam: Present: normal inspection, full ROM - Respiratory Respiratory exam: Absent: accessory muscle use - Cardiovascular Cardiovascular Exam: Present: regular rate - Expanded Lower Extremity Exam Left Hip exam: Present: full ROM Upper Leg exam: Present: normal inspection, full ROM Knee exam: Present: normal inspection, full ROM Ankle exam: Present: full ROM, tenderness (Lateral malleolus), swelling (Lateral malleolus) Foot/Toe exam: Present: normal inspection, full ROM. Absent: tenderness, swelling, abrasion Neuro vascular tendon exam: Present: no vascular compromise - Back Exam Back exam: Present: normal inspection, full ROM - Neurological Exam Neurological exam: Present: alert, oriented X3 - Psychiatric Psychiatric exam: Present: normal affect, normal mood - Skin Skin exam: Present: warm, dry, intact, normal color. Absent: rash ED Course Vital Signs 01/13/21 06:26 Temperature 98.8 F Pulse Rate 98 H Respiratory 16 Rate Blood Pressure 124/74 [Right] O2 Sat by Pulse 99 Oximetry ED Lower Extremity MDM - Medical Decision Making 30-year-old -[place] female presents to the emergency room reporting swelling and pain to her left ankle that started 20 minutes prior to arrival. Patient does not recall any injury. 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 Patient states that the pain is worse with ambulating and applying pressure to left lateral part of her ankle. Patient states she was given ibuprofen 600 mg when she arrived here. Patient states elevating and resting makes it better. X-ray of left ankle shows no acute abnormalities. Patient was given ibuprofen 600 mg in triage which she feels reports helps some. Patient is elevating her foot while in room 30 on a chair. Patient is in no acute distress. We will place her on a ankle stirrup she can take ibuprofen for pain management and to follow-up with orthopedic provider. Critical care attestation.: If time is entered above; I have spent that time in minutes in the direct care of this critically ill patient, excluding procedure time. ED Disposition Clinical Impression: Left lateral ankle pain Disposition: DC-01 TO HOME OR SELFCARE Is pt being admited?: No Does the pt Need Aspirin: No Condition: Stable Instructions: How to Use Cold Therapy, [id number], Joint Pain, [id number] Additional Instructions: X-ray of your left ankle shows no acute fractures or subluxation or dislocation. I do recommend wearing the ankle stirrup and to follow-up with an orthopedic provider. Take your ibuprofen or Aleve as needed for pain management. Ice therapy 20 minutes on every 2 hours and elevate to help with the swelling. Referrals: LYUDIMLA HYLTON MD [Staff Physician] - 3-5 Days Forms: Work/School Release Form(ED)
== END 2021-01-13 11:39 | disposition home or self-care (01) ==
LOC: ED 06:22
DX: M25.572 Pain in left ankle and joints of left foot (principal); G43.909 Migraine, unspecified, not intractable, without status migrainosus; F17.200 Nicotine dependence, unspecified, uncomplicated; Z98.890 Other specified postprocedural states
CPT/HCPCS: 99283

== ENCOUNTER 2021-02-12 22:30 | Emergency (ER) | payer SELFPAY ==
[2021-02-12 23:55] VITALS: BP 120/62
--- NOTE | 2021-02-13 03:36 | Emergency Department Report ---
- General Chief Complaint: Upper Respiratory Infection Stated Complaint: CONGESTION/PRESSURE IN FRONT OF HEAD Source: patient Mode of arrival: Ambulatory Limitations: No Limitations - History of Present Illness Initial Comments: Patient is a 30-year-old -[place] female with a history of migraine headaches who presents to the ED with complaint of acute onset persistent nasal and sinus congestion, frontal sinus pressure and headache, bilateral ear pain and persistent dry cough for the last 1 week, worse in the last 2 days. Patient states that on 9-year-old child had similar symptoms. Patient denies dizziness, syncope, nausea, vomiting, chest pain, shortness of breath, sore throat, abdominal pain, dysuria, hearing loss, change in vision or neck pain. MD Complaint: cough, rhinorrhea, nasal congestion, sinus pain -: Sudden, week(s) (1) Severity: moderate Severity scale (0 -10): 7 Quality: dull, aching Consistency: constant Improves With: nothing Worsens With: nothing Context: sick contacts Associated Symptoms: headache, rhinorrhea, nasal congestion, cough, ear pain. denies: fever, chills, myalgias, diaphoresis, stiff neck, chest pain, shortness of breath, abdominal pain, nausea, vomiting, diarrhea, dysuria, rash, right sweats, epistaxis, hoarseness, other Treatments Prior to Arrival: none - Related Data Previous Rx's Medication Instructions Recorded Last Taken Type Amoxicillin 500 mg PO BID #20 capsule 04/11/17 Unknown Rx Fluconazole (Nf) [Diflucan TAB] 150 mg PO ONCE #1 tablet 04/11/17 Unknown Rx Ketorolac [Toradol] 10 mg PO Q6H PRN #15 tablet 09/01/18 Unknown Rx Diphenhydramine HCl [Sleep Tabs 25 mg PO BID PRN #20 tablet 01/15/19 Unknown Rx 25MG] Pyridoxine HCl (Vitamin B6) 25 mg PO BID PRN #20 tablet 01/15/19 Unknown Rx [Vitamin B-6 25MG TAB] Butalb/Acetamin/Caff 50-325-40 1 tab PO Q6HR PRN #20 tab 02/21/19 Unknown Rx [Fioricet 50-325-40] methOCARBAMOL [Robaxin TAB] 750 mg PO Q8H PRN #21 tablet 02/21/19 Unknown Rx Butalb/Acetamin/Caff 50-325-40 1 tab PO Q6HR PRN #20 tab 04/24/19 Unknown Rx [Fioricet 50-325-40] traMADoL [Ultram 50 MG tab] 50 mg PO Q6HR PRN #15 tablet 04/15/20 Unknown Rx traMADoL [Ultram] 50 mg PO Q6HR PRN #14 tablet 09/16/20 Unknown Rx Amoxicillin [Trimox CAP] 500 mg PO Q8H #30 capsule 02/13/21 Unknown Rx Benzonatate [Tessalon Perles] 100 mg PO Q8HR #30 capsule 02/13/21 Unknown Rx Cetirizine HCl [Zyrtec 10mg tab] 10 mg PO DAILY #30 tablet 02/13/21 Unknown Rx Ibuprofen [Motrin 800 MG tab] 800 mg PO Q8HR PRN #30 tablet 02/13/21 Unknown Rx predniSONE [Deltasone] 40 mg PO QDAY #10 tab 02/13/21 Unknown Rx Allergies Allergy/AdvReac Type Severity Reaction Status Date / Time No Known Allergies Allergy Verified 02/21/19 12:28 ED Review of Systems ROS: Stated complaint: CONGESTION/PRESSURE IN FRONT OF HEAD Other details as noted in HPI Constitutional: denies: chills, fever Eyes: denies: eye pain, eye discharge, vision change ENT: ear pain, congestion, other (Nasal and sinus congestion). denies: throat pain Respiratory: cough (Bilateral ear pain). denies: shortness of breath, wheezing Cardiovascular: denies: chest pain, palpitations Endocrine: no symptoms reported Gastrointestinal: denies: abdominal pain, nausea, vomiting, diarrhea Genitourinary: denies: urgency, dysuria, discharge Musculoskeletal: denies: back pain, joint swelling, arthralgia Skin: denies: rash, lesions Neurological: headache. denies: weakness, paresthesias Psychiatric: denies: anxiety, depression Hematological/Lymphatic: denies: easy bleeding, easy bruising ED Past Medical Hx - Past Medical History Previous Medical History?: Yes Hx Headaches / Migraines: Yes - Surgical History Past Surgical History?: Yes Additional Surgical History: elective AB - Social History Smoking Status: Current Every Day Smoker Substance Use Type: Alcohol - Medications Home Medications: Home Medications Medication Instructions Recorded Confirmed Last Taken Type Amoxicillin 500 mg PO BID #20 capsule 04/11/17 Unknown Rx Fluconazole (Nf) [Diflucan TAB] 150 mg PO ONCE #1 tablet 04/11/17 Unknown Rx Ketorolac [Toradol] 10 mg PO Q6H PRN #15 tablet 09/01/18 Unknown Rx Diphenhydramine HCl [Sleep Tabs 25 mg PO BID PRN #20 tablet 01/15/19 Unknown Rx 25MG] Pyridoxine HCl (Vitamin B6) 25 mg PO BID PRN #20 tablet 01/15/19 Unknown Rx [Vitamin B-6 25MG TAB] Butalb/Acetamin/Caff 50-325-40 1 tab PO Q6HR PRN #20 tab 02/21/19 Unknown Rx [Fioricet 50-325-40] methOCARBAMOL [Robaxin TAB] 750 mg PO Q8H PRN #21 tablet 02/21/19 Unknown Rx Butalb/Acetamin/Caff 50-325-40 1 tab PO Q6HR PRN #20 tab 04/24/19 Unknown Rx [Fioricet 50-325-40] traMADoL [Ultram 50 MG tab] 50 mg PO Q6HR PRN #15 tablet 04/15/20 Unknown Rx traMADoL [Ultram] 50 mg PO Q6HR PRN #14 tablet 09/16/20 Unknown Rx Amoxicillin [Trimox CAP] 500 mg PO Q8H #30 capsule 02/13/21 Unknown Rx Benzonatate [Tessalon Perles] 100 mg PO Q8HR #30 capsule 02/13/21 Unknown Rx Cetirizine HCl [Zyrtec 10mg tab] 10 mg PO DAILY #30 tablet 02/13/21 Unknown Rx Ibuprofen [Motrin 800 MG tab] 800 mg PO Q8HR PRN #30 tablet 02/13/21 Unknown Rx predniSONE [Deltasone] 40 mg PO QDAY #10 tab 02/13/21 Unknown Rx ED Physical Exam - General Limitations: No Limitations General appearance: alert, in no apparent distress - Head Head exam: Present: atraumatic, normocephalic, normal inspection - Eye Eye exam: Present: normal appearance, PERRL, EOMI Pupils: Present: normal accommodation - ENT ENT exam: Present: normal orophraynx, mucous membranes moist, normal external ear exam, other (Grossly congested nasal passages; palpable maxillary and frontal sinus tenderness; bilateral erythematous tympanic membrane with effusion) - Neck Neck exam: Present: normal inspection, full ROM, lymphadenopathy. Absent: tenderness - Respiratory Respiratory exam: Present: normal lung sounds bilaterally. Absent: respiratory distress, wheezes, rales, rhonchi, stridor, chest wall tenderness, accessory muscle use, decreased breath sounds - Cardiovascular Cardiovascular Exam: Present: normal rhythm, tachycardia, normal heart sounds. Absent: systolic murmur, diastolic murmur, rubs, gallop - GI/Abdominal GI/Abdominal exam: Present: soft, normal bowel sounds. Absent: distended, tenderness, guarding, rebound, hyperactive bowel sounds, hypoactive bowel sounds, organomegaly - Extremities Exam Extremities exam: Present: normal inspection, full ROM, normal capillary refill - Back Exam Back exam: Present: normal inspection, full ROM. Absent: tenderness, CVA tenderness (R), muscle spasm, paraspinal tenderness - Neurological Exam Neurological exam: Present: alert, oriented X3, CN II-XII intact, normal gait, reflexes normal - Psychiatric Psychiatric exam: Present: normal affect, normal mood - Skin Skin exam: Present: warm, dry, intact, normal color. Absent: rash ED Course Vital Signs 02/12/21 23:54 Temperature 99 F Pulse Rate 102 H Respiratory 16 Rate Blood Pressure 120/62 [Right] O2 Sat by Pulse 100 Oximetry ED Medical Decision Making - Medical Decision Making This is a 30-year-old -[place] female with a history of migraine headaches who presents to the ED with complaint of acute onset persistent nasal and sinus congestion, frontal sinus pressure and headache, bilateral ear pain and persistent dry cough for the last 1 week, worse in the last 2 days. Patient states that on 9-year-old child had similar symptoms. In the ED, patient is alert and oriented x3 and is not in any distress. Based on the history and physi nathaniel exam findings, patient symptoms are likely due to upper respiratory infection. Patient was discharged home on medications and advised to follow-up with her primary care physician in 7 to 10 days for reevaluation or return to the ED immediately if symptoms get worse. - Differential Diagnosis URI; sinusitis; bronchitis; otitis media; COVID-19 Critical care attestation.: If time is entered above; I have spent that time in minutes in the direct care of this critically ill patient, excluding procedure time. ED Disposition Clinical Impression: Acute upper respiratory infection, Acute otitis media with effusion of both ears, Acute bacterial sinusitis Acute bronchitis Qualifiers: Bronchitis organism: other organism Qualified Code(s): J20.8 - Acute bronchitis due to other specified organisms Disposition: 01 HOME / SELF CARE / HOMELESS Is pt being admited?: No Does the pt Need Aspirin: No Condition: Stable Instructions: Otitis Media, Adult, [id number], Sinusitis, Adult, [id number], Acute Bronchitis, Adult, [id number], Upper Respiratory Infection, Adult, [id number], Acute Bronchitis (ED) Additional Instructions: Your symptoms are likely due to upper respiratory infection versus sinusitis versus bronchitis and otitis media. Therefore take medications with food, drink plenty of fluids and follow-up with your primary care physician in 7 to 10 days for reevaluation. Return to the ED immediately if symptoms get worse. Prescriptions: predniSONE [Deltasone] 40 mg PO QDAY #10 tab Ibuprofen [Motrin 800 MG tab] 800 mg PO Q8HR PRN #30 tablet PRN Reason: Pain , Severe (7-10) Benzonatate [Tessalon Perles] 100 mg PO Q8HR #30 capsule Amoxicillin [Trimox CAP] 500 mg PO Q8H #30 capsule Cetirizine HCl [Zyrtec 10mg tab] 10 mg PO DAILY #30 tablet Referrals: [facility] [Provider Group] - 7-10 days Forms: Work/School Release Form(ED) Time of Disposition: 03:34 Print Language: ESTONIAN
== END 2021-02-13 03:36 | disposition home or self-care (01) ==
LOC: ED 22:30
DX: J06.9 Acute upper respiratory infection, unspecified (principal); J20.9 Acute bronchitis, unspecified; H65.193 Other acute nonsuppurative otitis media, bilateral; J01.90 Acute sinusitis, unspecified; B96.89 Other specified bacterial agents as the cause of diseases classified elsewhere; G43.909 Migraine, unspecified, not intractable, without status migrainosus; F17.200 Nicotine dependence, unspecified, uncomplicated; Z79.899 Other long term (current) drug therapy; Z98.890 Other specified postprocedural states
CPT/HCPCS: 99281

== ENCOUNTER 2021-08-26 19:09 | Emergency (ER) | payer MEDICAID ==
[2021-08-26] MEDS ORDERED: LIDOCAINE-MPF (1%) 10 MG/1 ML VIAL 5 ML INFILTRATI ONE (21:50)
[2021-08-26] MEDS ORDERED: TETANUS,DIPH,PERTUSS(ACELL) VACCINE 0.5 ML SYRINGE IM ONE (21:50)
[2021-08-26] MEDS ORDERED: IBUPROFEN 800 MG TAB PO ONE (21:50)
--- NOTE | 2021-08-26 22:03 | Emergency Department Report ---
ED Lower Extremity HPI - General Chief Complaint: Wound/Laceration Stated Complaint: LT LEG LAC Source: patient Mode of arrival: Ambulatory Limitations: No Limitations - History of Present Illness Initial Comments: Patient is a 30-year-old -[place] female with a history of migraine headaches who presents to the ED with complaint of acute onset persistent right lower leg pain due to bleeding laceration wound on right lower leg about 1 hour ago after a sharp object cut her leg with she passed near it. Patient states that she is not up-to-date with her tetanus vaccination. Patient denies numbness and tingling or weakness of right leg, dizziness, nausea and vomiting, fall, chest pain or shortness of breath. MD Complaint: leg injury (Lateral right lower leg bleeding laceration wound) -: Sudden, hour(s) (2) Injury: Leg: Right (Lateral right lower leg laceration) Type of Injury: laceration Place: home Severity: moderate Severity scale (0 -10): 6 Improves With: nothing Worsens With: weight bearing, movement, palpation Context: walking Associated Symptoms: denies: snap/pop sensation, numbness, tingling, unable to bear weight, able to partially bear weight, ambulatory - Related Data Previous Rx's Medication Instructions Recorded Last Taken Type Amoxicillin 500 mg PO BID #20 capsule 04/11/17 Unknown Rx Fluconazole (Nf) [Diflucan TAB] 150 mg PO ONCE #1 tablet 04/11/17 Unknown Rx Ketorolac [Toradol] 10 mg PO Q6H PRN #15 tablet 09/01/18 Unknown Rx Diphenhydramine HCl [Sleep Tabs 25 mg PO BID PRN #20 tablet 01/15/19 Unknown Rx 25MG] Pyridoxine HCl (Vitamin B6) 25 mg PO BID PRN #20 tablet 01/15/19 Unknown Rx [Vitamin B-6 25MG TAB] Butalb/Acetamin/Caff 50-325-40 1 tab PO Q6HR PRN #20 tab 02/21/19 Unknown Rx [Fioricet 50-325-40] methOCARBAMOL [Robaxin TAB] 750 mg PO Q8H PRN #21 tablet 02/21/19 Unknown Rx Butalb/Acetamin/Caff 50-325-40 1 tab PO Q6HR PRN #20 tab 04/24/19 Unknown Rx [Fioricet 50-325-40] traMADoL [Ultram 50 MG tab] 50 mg PO Q6HR PRN #15 tablet 04/15/20 Unknown Rx traMADoL [Ultram] 50 mg PO Q6HR PRN #14 tablet 09/16/20 Unknown Rx Amoxicillin [Trimox CAP] 500 mg PO Q8H #30 capsule 02/13/21 Unknown Rx Benzonatate [Tessalon Perles] 100 mg PO Q8HR #30 capsule 02/13/21 Unknown Rx Cetirizine HCl [Zyrtec 10mg tab] 10 mg PO DAILY #30 tablet 02/13/21 Unknown Rx Ibuprofen [Motrin 800 MG tab] 800 mg PO Q8HR PRN #30 tablet 02/13/21 Unknown Rx predniSONE [Deltasone] 40 mg PO QDAY #10 tab 02/13/21 Unknown Rx Fluconazole [Diflucan TAB] 200 mg PO QDAY #2 tablet 08/26/21 Unknown Rx Ibuprofen [Motrin] 800 mg PO Q8HR PRN #24 tablet 08/26/21 Unknown Rx cephALEXin [Keflex] 500 mg PO Q8HR #30 cap 08/26/21 Unknown Rx Allergies Allergy/AdvReac Type Severity Reaction Status Date / Time No Known Allergies Allergy Verified 02/21/19 12:28 ED Review of Systems ROS: Stated complaint: LT LEG LAC Other details as noted in HPI Constitutional: denies: chills, fever Eyes: denies: eye pain, eye discharge, vision change ENT: denies: ear pain, throat pain Respiratory: denies: cough, shortness of breath, wheezing Cardiovascular: denies: chest pain, palpitations Endocrine: no symptoms reported Gastrointestinal: denies: abdominal pain, nausea, diarrhea Genitourinary: denies: urgency, dysuria, discharge Musculoskeletal: arthralgia (Painful right lateral leg bleeding laceration). denies: back pain, joint swelling Skin: other (Bleeding right lower leg laceration). denies: rash, lesions Neurological: denies: headache, weakness, paresthesias Psychiatric: denies: anxiety, depression Hematological/Lymphatic: denies: easy bleeding, easy bruising ED Past Medical Hx - Past Medical History Previous Medical History?: Yes Hx Headaches / Migraines: Yes - Surgical History Past Surgical History?: Yes Additional Surgical History: elective AB - Social History Smoking Status: Current Every Day Smoker Substance Use Type: Alcohol - Medications Home Medications: Home Medications Medication Instructions Recorded Confirmed Last Taken Type Amoxicillin 500 mg PO BID #20 capsule 04/11/17 Unknown Rx Fluconazole (Nf) [Diflucan TAB] 150 mg PO ONCE #1 tablet 04/11/17 Unknown Rx Ketorolac [Toradol] 10 mg PO Q6H PRN #15 tablet 09/01/18 Unknown Rx Diphenhydramine HCl [Sleep Tabs 25 mg PO BID PRN #20 tablet 01/15/19 Unknown Rx 25MG] Pyridoxine HCl (Vitamin B6) 25 mg PO BID PRN #20 tablet 01/15/19 Unknown Rx [Vitamin B-6 25MG TAB] Butalb/Acetamin/Caff 50-325-40 1 tab PO Q6HR PRN #20 tab 02/21/19 Unknown Rx [Fioricet 50-325-40] methOCARBAMOL [Robaxin TAB] 750 mg PO Q8H PRN #21 tablet 02/21/19 Unknown Rx Butalb/Acetamin/Caff 50-325-40 1 tab PO Q6HR PRN #20 tab 04/24/19 Unknown Rx [Fioricet 50-325-40] traMADoL [Ultram 50 MG tab] 50 mg PO Q6HR PRN #15 tablet 04/15/20 Unknown Rx traMADoL [Ultram] 50 mg PO Q6HR PRN #14 tablet 09/16/20 Unknown Rx Amoxicillin [Trimox CAP] 500 mg PO Q8H #30 capsule 02/13/21 Unknown Rx Benzonatate [Tessalon Perles] 100 mg PO Q8HR #30 capsule 02/13/21 Unknown Rx Cetirizine HCl [Zyrtec 10mg tab] 10 mg PO DAILY #30 tablet 02/13/21 Unknown Rx Ibuprofen [Motrin 800 MG tab] 800 mg PO Q8HR PRN #30 tablet 02/13/21 Unknown Rx predniSONE [Deltasone] 40 mg PO QDAY #10 tab 02/13/21 Unknown Rx Fluconazole [Diflucan TAB] 200 mg PO QDAY #2 tablet 08/26/21 Unknown Rx Ibuprofen [Motrin] 800 mg PO Q8HR PRN #24 tablet 08/26/21 Unknown Rx cephALEXin [Keflex] 500 mg PO Q8HR #30 cap 08/26/21 Unknown Rx ED Physical Exam - General Limitations: No Limitations General appearance: alert, in no apparent distress - Head Head exam: Present: atraumatic, normocephalic, normal inspection - Eye Eye exam: Present: normal appearance, PERRL, EOMI Pupils: Present: normal accommodation - ENT ENT exam: Present: normal exam, normal orophraynx, mucous membranes moist, TM's normal bilaterally, normal external ear exam - Neck Neck exam: Present: normal inspection, full ROM. Absent: tenderness - Respiratory Respiratory exam: Present: normal lung sounds bilaterally. Absent: respiratory distress, wheezes, rales, stridor, chest wall tenderness, accessory muscle use, decreased breath sounds, prolonged expiratory - Cardiovascular Cardiovascular Exam: Present: regular rate, normal rhythm, normal heart sounds. Absent: systolic murmur, diastolic murmur, rubs, gallop - GI/Abdominal GI/Abdominal exam: Present: soft, normal bowel sounds. Absent: tenderness, guarding, rebound, hyperactive bowel sounds, hypoactive bowel sounds, organomegaly, mass - Extremities Exam Extremities exam: Present: normal inspection, full ROM, tenderness (Palpable mild tenderness on right lateral leg due to bleeding 3 cm laceration), normal capillary refill - Back Exam Back exam: Present: normal inspection, full ROM. Absent: tenderness, CVA tenderness (R), CVA tenderness (L), muscle spasm, paraspinal tenderness, vertebral tenderness - Neurological Exam Neurological exam: Present: alert, oriented X3, CN II-XII intact, normal gait, reflexes normal - Psychiatric Psychiatric exam: Present: normal affect, normal mood - Skin Skin exam: Present: warm, dry, intact, normal color, other (Bleeding 3 cm laceration wound on right lateral lower leg). Absent: rash, cyanosis, erythema, urticaria ED Course Vital Signs 08/26/21 08/26/21 21:54 22:33 Temperature 98.8 F Pulse Rate 96 H Respiratory 17 18 Rate Blood Pressure 120/71 [Right] O2 Sat by Pulse 99 Oximetry - Laceration /Wound Repair Right Lower Leg Wound Location: lower extremity (Right lower leg) Wound Length (cm): 3 Wound's Depth, Shape: superficial, linear Wound Explored: contaminated Irrigated w/ Saline (ccs): 200 Betadine Prep?: Yes Anesthesia: 1% Lidocaine Volume Anesthetic (ccs): 5 Wound Debrided: extensive Wound Repaired With: sutures Suture Size/Type: 3:0, proline Number of Sutures: 7 Layer Closure?: No Sterile Dressing Applied?: Yes Progress: The wound was cleaned extensively with normal saline and Betadine solution. Lidocaine 1% solution was used as a local anesthetic. When anesthesia was fully achieved, the wound was sutured per protocol using Prolene 3-0 sutures and a total of 7 sutures were used. The wound was then cleaned extensively normal saline and dressed appropriately with 4 x 4 gauze and Kerlix gauze. Patient tolerated procedure well. ED Lower Extremity MDM - Medical Decision Making This is a 30-year-old -[place] female with a history of migraine headaches who presents to the ED with complaint of acute onset persistent right lower leg pain due to bleeding laceration wound on right lower leg about 1 hour ago after a sharp object cut her leg with she passed near it. Patient states that she is not up-to-date with her tetanus vaccination. In the ED, patient is alert and oriented x3 and is not in any distress. Patient was treated for pain in the ED and also received booster tetanus vaccinations. The right lower leg bleeding laceration wound was cleaned extensively with normal saline and Betadine solutions. Lidocaine 1% solution was used to infiltrate around the wound for anesthesia. When anesthesia was fully achieved, the wound was sutured per protocol with Prolene 3-0 sutures, and a total of 7 sutures were used. The wound was then dressed appropriately and the patient was discharged home on pain medication and prophylactic antibiotics. Patient was advised return to the ED immediately if symptoms get worse. Patient was also advised return to the ED in 12 to 14 days for suture removal. - Differential Diagnosis Laceration; Abrasion; Leg contusion Critical care attestation.: If time is entered above; I have spent that time in minutes in the direct care of this critically ill patient, excluding procedure time. ED Disposition Clinical Impression: Laceration of right lower leg without foreign body Qualifiers: Encounter type: initial encounter Qualified Code(s): S81.811A - Laceration without foreign body, right lower leg, initial encounter Disposition: 01 HOME / SELF CARE / HOMELESS Is pt being admited?: No Does the pt Need Aspirin: No Condition: Stable Instructions: Laceration Care, Adult, [id number], Sutured Wound Care, [id number] Additional Instructions: Take medication with food, drink plenty of fluids and follow-up with your primary care physician in 7 to 10 days for reevaluation. Return to the ED immediately if symptoms get worse. Otherwise return to the ED or to your prima ry care physician in 12 to 14 days for suture removal. Prescriptions: Fluconazole [Diflucan TAB] 200 mg PO QDAY #2 tablet cephALEXin [Keflex] 500 mg PO Q8HR #30 cap Ibuprofen [Motrin] 800 mg PO Q8HR PRN #24 tablet PRN Reason: Pain , Severe (7-10) Referrals: [facility] [Provider Group] - 7-10 days Time of Disposition: 22:07 Print Language: PARAGUAYAN
[2021-08-26] MEDS ORDERED: LIDOCAINE (1%) 10 MG/1 ML VIAL 20 ML MDV INFILTRATI ONE (22:52)
[2021-08-26 23:27] VITALS: BP 128/78
== END 2021-08-26 23:29 | disposition home or self-care (01) ==
LOC: ED 19:09
DX: S81.811A Laceration without foreign body, right lower leg, initial encounter (principal); F17.200 Nicotine dependence, unspecified, uncomplicated; F10.20 Alcohol dependence, uncomplicated; X58.XXXA Exposure to other specified factors, initial encounter; Y93.89 Activity, other specified; Y92.89 Other specified places as the place of occurrence of the external cause; Y99.8 Other external cause status
CPT/HCPCS: 12002; 90715; 96372; 99282; J3490

== ENCOUNTER 2021-08-30 15:21 | Emergency (ER) | payer MEDICAID ==
[2021-08-30 15:40] VITALS: BP 129/82
--- NOTE | 2021-08-30 16:30 | Emergency Department Report ---
- General Chief Complaint: Wound/Laceration Stated Complaint: SUTURE REMOVAL Time Seen by Provider: 08/30/21 16:26 Source: patient Mode of arrival: Ambulatory Limitations: No Limitations - History of Present Illness Initial Comments: 30 yof presents to ed for suture removal. She states that she had sutures placed in her right leg here 2 days ago and is here to have them removed. She states that she was told to return in 2 days for suture removal. Extremity Location: Left: Lower Leg Associated Symptoms: denies: pain, fever - Related Data Previous Rx's Medication Instructions Recorded Last Taken Type Amoxicillin 500 mg PO BID #20 capsule 04/11/17 Unknown Rx Fluconazole (Nf) [Diflucan TAB] 150 mg PO ONCE #1 tablet 04/11/17 Unknown Rx Ketorolac [Toradol] 10 mg PO Q6H PRN #15 tablet 09/01/18 Unknown Rx Diphenhydramine HCl [Sleep Tabs 25 mg PO BID PRN #20 tablet 01/15/19 Unknown Rx 25MG] Pyridoxine HCl (Vitamin B6) 25 mg PO BID PRN #20 tablet 01/15/19 Unknown Rx [Vitamin B-6 25MG TAB] Butalb/Acetamin/Caff 50-325-40 1 tab PO Q6HR PRN #20 tab 02/21/19 Unknown Rx [Fioricet 50-325-40] methOCARBAMOL [Robaxin TAB] 750 mg PO Q8H PRN #21 tablet 02/21/19 Unknown Rx Butalb/Acetamin/Caff 50-325-40 1 tab PO Q6HR PRN #20 tab 04/24/19 Unknown Rx [Fioricet 50-325-40] traMADoL [Ultram 50 MG tab] 50 mg PO Q6HR PRN #15 tablet 04/15/20 Unknown Rx traMADoL [Ultram] 50 mg PO Q6HR PRN #14 tablet 09/16/20 Unknown Rx Amoxicillin [Trimox CAP] 500 mg PO Q8H #30 capsule 02/13/21 Unknown Rx Benzonatate [Tessalon Perles] 100 mg PO Q8HR #30 capsule 02/13/21 Unknown Rx Cetirizine HCl [Zyrtec 10mg tab] 10 mg PO DAILY #30 tablet 02/13/21 Unknown Rx Ibuprofen [Motrin 800 MG tab] 800 mg PO Q8HR PRN #30 tablet 02/13/21 Unknown Rx predniSONE [Deltasone] 40 mg PO QDAY #10 tab 02/13/21 Unknown Rx Fluconazole [Diflucan TAB] 200 mg PO QDAY #2 tablet 08/26/21 Unknown Rx Ibuprofen [Motrin] 800 mg PO Q8HR PRN #24 tablet 08/26/21 Unknown Rx cephALEXin [Keflex] 500 mg PO Q8HR #30 cap 08/26/21 Unknown Rx Allergies Allergy/AdvReac Type Severity Reaction Status Date / Time No Known Allergies Allergy Verified 02/21/19 12:28 ED Review of Systems ROS: Stated complaint: SUTURE REMOVAL Other details as noted in HPI Comment: All other systems reviewed and negative Constitutional: denies: fever Respiratory: denies: shortness of breath Cardiovascular: denies: chest pain Endocrine: no symptoms reported Gastrointestinal: denies: vomiting Musculoskeletal: denies: back pain Skin: denies: rash Neurological: paresthesias. denies: weakness Psychiatric: denies: anxiety Hematological/Lymphatic: denies: easy bleeding, easy bruising ED Past Medical Hx - Past Medical History Hx Headaches / Migraines: Yes - Surgical History Additional Surgical History: elective AB - Social History Smoking Status: Current Every Day Smoker Substance Use Type: Alcohol - Medications Home Medications: Home Medications Medication Instructions Recorded Confirmed Last Taken Type Amoxicillin 500 mg PO BID #20 capsule 04/11/17 Unknown Rx Fluconazole (Nf) [Diflucan TAB] 150 mg PO ONCE #1 tablet 04/11/17 Unknown Rx Ketorolac [Toradol] 10 mg PO Q6H PRN #15 tablet 09/01/18 Unknown Rx Diphenhydramine HCl [Sleep Tabs 25 mg PO BID PRN #20 tablet 01/15/19 Unknown Rx 25MG] Pyridoxine HCl (Vitamin B6) 25 mg PO BID PRN #20 tablet 01/15/19 Unknown Rx [Vitamin B-6 25MG TAB] Butalb/Acetamin/Caff 50-325-40 1 tab PO Q6HR PRN #20 tab 02/21/19 Unknown Rx [Fioricet 50-325-40] methOCARBAMOL [Robaxin TAB] 750 mg PO Q8H PRN #21 tablet 02/21/19 Unknown Rx Butalb/Acetamin/Caff 50-325-40 1 tab PO Q6HR PRN #20 tab 04/24/19 Unknown Rx [Fioricet 50-325-40] traMADoL [Ultram 50 MG tab] 50 mg PO Q6HR PRN #15 tablet 04/15/20 Unknown Rx traMADoL [Ultram] 50 mg PO Q6HR PRN #14 tablet 09/16/20 Unknown Rx Amoxicillin [Trimox CAP] 500 mg PO Q8H #30 capsule 02/13/21 Unknown Rx Benzonatate [Tessalon Perles] 100 mg PO Q8HR #30 capsule 02/13/21 Unknown Rx Cetirizine HCl [Zyrtec 10mg tab] 10 mg PO DAILY #30 tablet 02/13/21 Unknown Rx Ibuprofen [Motrin 800 MG tab] 800 mg PO Q8HR PRN #30 tablet 02/13/21 Unknown Rx predniSONE [Deltasone] 40 mg PO QDAY #10 tab 02/13/21 Unknown Rx Fluconazole [Diflucan TAB] 200 mg PO QDAY #2 tablet 08/26/21 Unknown Rx Ibuprofen [Motrin] 800 mg PO Q8HR PRN #24 tablet 08/26/21 Unknown Rx cephALEXin [Keflex] 500 mg PO Q8HR #30 cap 08/26/21 Unknown Rx ED Physical Exam - General Limitations: No Limitations General appearance: alert, in no apparent distress - Head Head exam: Present: atraumatic, normocephalic - Eye Eye exam: Present: normal appearance. Absent: conjunctival injection - Neck Neck exam: Present: normal inspection - Respiratory Respiratory exam: Absent: respiratory distress - Cardiovascular Cardiovascular Exam: Present: regular rate - GI/Abdominal GI/Abdominal exam: Absent: distended - Expanded Lower Extremity Exam Right Lower Leg exam: Present: laceration (with suture intact, no erythema, edema or drainage noted. ) Neuro vascular tendon exam: Absent: no vascular compromise - Neurological Exam Neurological exam: Present: alert, oriented X3 - Psychiatric Psychiatric exam: Present: normal affect, normal mood - Skin Skin exam: Present: warm, dry, normal color ED Course Vital Signs 08/30/21 15:39 Temperature 99.3 F Pulse Rate 93 H Respiratory 18 Rate Blood Pressure 129/82 O2 Sat by Pulse 97 Oximetry ED Medical Decision Making - Medical Decision Making 30 yof presents to ed for suture removal. She states that she had sutures placed in her right leg here 2 days ago and is here to have them removed. She states that she was told to return in 2 days for suture removal. Suture intact to right lateral leg, no erythema, edema, or drainage noted. Patient was advised that it is to soon to take sutures out and advised to return in 7-10 days for removed. She verbalized understanding. Critical care attestation.: If time is entered above; I have spent that time in minutes in the direct care of this critically ill patient, excluding procedure time. ED Disposition Clinical Impression: Visit for wound check Disposition: HOME / SELF CARE / HOMELESS Is pt being admited?: No Does the pt Need Aspirin: No Condition: Stable Instructions: Sutured Wound Care, [id number] Additional Instructions: Leave the sutures in you for 7 more days then return for suture removal. Return immediately if you develop fever drainage or red streaks from area. Referrals: PRIMARY CARE, [Primary Care Provider] - 3-5 Days Time of Disposition: 16:30
== END 2021-08-30 17:12 | disposition home or self-care (01) ==
LOC: ED 15:21
DX: S81.811D Laceration without foreign body, right lower leg, subsequent encounter (principal); Z48.00 Encounter for change or removal of nonsurgical wound dressing; F17.200 Nicotine dependence, unspecified, uncomplicated; X58.XXXD Exposure to other specified factors, subsequent encounter
CPT/HCPCS: 99281